=== PATIENT | male | born 1960 | race African-American/Black ===

== ENCOUNTER 2022-04-09 07:02 | Emergency (ER) | payer OTHER ==
[~2022-04-09] VITALS: Ht 185.4 cm; Wt 88.9 kg
[2022-04-09] MEDS ORDERED: SODIUM CHLORIDE 0.9% 1000ML 1,000 ML IV STA (07:27)
[2022-04-09 08:06] LABS: BASOPHILS % 0.7 % (0.0-1.0); EOSINOPHILS # (AUTO) 0.1 (0.0-0.4); EOSINOPHILS % 3.1 % (0.0-6.0); HEMOGLOBIN 13.7 g/dL (14.0-18.0); LYMPHOCYTES # (AUTO) 1.7 (1.0-3.2); LYMPHOCYTES % 41.3 % (18.0-39.1); MEAN CORPUSCULAR HEMOGLOBIN 31.2 pg (28-32); MEAN CORPUSCULAR HGB CONC 32.6 g/dL (31-35); MEAN CORPUSCULAR VOLUME 95.7 fL (81-99); MONOCYTES # (AUTO) 0.5 (0.2-0.8); MONOCYTES % 11.6 % (4.4-11.3); NEUTROPHILS # (AUTO) 1.8 (2.1-6.9); NEUTROPHILS % 43.1 % (38.7-80.0); PLATELET COUNT 229 x10e3/uL (140-360); RED BLOOD COUNT 4.39 x10e6/uL (4.3-5.7); RED CELL DISTRIBUTION WIDTH 11.9 % (11.7-14.4)
[2022-04-09 08:20] LABS: INR 0.88; PROTHROMBIN TIME 12.8 seconds (11.9-14.5)
[2022-04-09 08:21] LABS: PARTIAL THROMBOPLASTIN TIME 25.8 seconds (23.8-35.5)
[2022-04-09 08:25] LABS: CLARITY,URINE TURBID (CLEAR); COLOR,URINE RED (YELLOW); LEUKOCYTE ESTERASE ,URINE LARGE (NEGATIVE)
[2022-04-09 08:26] LABS: KETONES,URINE 2+ (NEGATIVE); NITRITE,URINE POSITIVE (NEGATIVE); PROTEIN,URINE DIPSTICK >=300 (NEGATIVE); URINE UROBILINOGEN >=8 mg/dL (0.2 - 1)
[2022-04-09 08:27] LABS: ALBUMIN 4.2 g/dL (3.5-5.0); ANION GAP 18.1 mmol/L (8-16); CREATININE, SERUM 0.95 mg/dL (0.72-1.25); POTASSIUM 4.1 mmol/L (3.5-5.1)
[2022-04-09 08:40] LABS: BACTERIA,URINE RARE /HPF; EPITHELIAL CELLS,URINE RARE /LPF; RBC,URINE >50 /HPF (0-5); WBC,URINE (MAN) 0-5 /HPF (0-5)
[2022-04-09] MEDS ORDERED: IOPAMIDOL 370 MG/ML 100 ML INFUS..BTL INJ ONE (08:49)
[2022-04-09] MEDS ORDERED: SODIUM CHLORIDE 0.9% 250ML 250 ML ONE (08:49)
[2022-04-09 14:10] VITALS: BP 133/85
== END 2022-04-09 13:42 | disposition home or self-care (01) ==
LOC: ER 07:11
DX: N30.91 Cystitis, unspecified with hematuria (principal); I10 Essential (primary) hypertension; E11.9 Type 2 diabetes mellitus without complications; E78.5 Hyperlipidemia, unspecified; M54.9 Dorsalgia, unspecified; G89.29 Other chronic pain; Z85.46 Personal history of malignant neoplasm of prostate
CPT/HCPCS: 36415; 51700; 74178; 80053; 81001; 85025; 85610; 85730; 87086; 99284; J7030; J7050; Q9967